=== PATIENT | female | born 2000 | race Hispanic/Latino ===

== ENCOUNTER 2021-02-21 08:30 | Emergency (ER) | payer SELFPAY ==
[~2021-02-21] VITALS: Ht 165.1 cm; Wt 104.0 kg
[~2021-02-21 08:30] MED LIST: AUGMENTIN875TAB PO; NO
[2021-02-21 09:16] VITALS: BP 143/83
== END 2021-02-21 09:18 | disposition home or self-care (01) | DRG 156 ==
LOC: ED 08:30
PROC: 09C37ZZ Extirpation of Matter from Right External Auditory Canal, Via Natural or Artificial Opening (ICD-10-PCS; principal; 2021-02-21)
DX: T16.1XXA Foreign body in right ear, initial encounter (principal); X58.XXXA Exposure to other specified factors, initial encounter